=== PATIENT | female | born 1945 | race Caucasian/White ===

== ENCOUNTER → 2019-06-18 | Outpatient (CLI) | payer MEDICARE | END | disposition home or self-care (01) | LOC: RAH 15:11 | PROVIDERS: ATTEND Internal Medicine | DX: Z12.31 Encounter for screening mammogram for malignant neoplasm of breast (principal) | CPT/HCPCS: 77067 ==

== ENCOUNTER → 2020-06-18 | Outpatient (CLI) | payer OTHER, MEDICARE | END | disposition home or self-care (01) | LOC: RAH 15:18 | PROVIDERS: ATTEND Family Medicine | DX: Z12.31 Encounter for screening mammogram for malignant neoplasm of breast (principal) | CPT/HCPCS: 77067 ==

== ENCOUNTER 2020-12-19 10:55 | Emergency (ER) | payer MEDICARE | END 2020-12-19 14:13 | disposition home or self-care (01) | LOC: EDH 10:55 | DX: S92.512A Displaced fracture of proximal phalanx of left lesser toe(s), initial encounter for closed fracture (principal); M19.90 Unspecified osteoarthritis, unspecified site; Z87.891 Personal history of nicotine dependence; Z88.2 Allergy status to sulfonamides; W18.39XA Other fall on same level, initial encounter; Y93.01 Activity, walking, marching and hiking; Y92.098 Other place in other non-institutional residence as the place of occurrence of the external cause; Y99.8 Other external cause status | CPT/HCPCS: 73600; 73630 ==

== ENCOUNTER 2021-03-08 11:08 | Emergency (ER) | payer MEDICARE ==
[~2021-03-08] VITALS: Ht 160 cm; Wt 53.5 kg
[2021-03-08 11:11] VITALS: BP 139/52
[2021-03-08 13:46] VITALS: BP 138/64
[2021-03-08 14:07] LABS: HEMATOCRIT 38.7 % (36-48); MEAN CORPUSCULAR HGB CONC 32.3 g/dL (32.0-36.0); MEAN CORPUSCULAR VOLUME 80.5 fL (79-99); PLATELET COUNT (AUTO) 311 K/uL (130-400); RED BLOOD CELL COUNT(AUTO) 4.81 MIL/uL (4.00-5.50); RED CELL DISTRIBUTION WIDTH 15.2 % (11.0-15.5); WHITE BLOOD COUNT (AUTO) 8.5 K/uL (4.8-10.8)
[2021-03-08 14:24] LABS: POTASSIUM 4.2 mmol/L (3.5-5.1)
[2021-03-08 14:29] LABS: ALBUMIN 3.5 g/dL (3.5-5.0); BILIRUBIN,TOTAL 0.3 mg/dL (0.2-1.0); TOTAL PROTEIN, SERUM 6.8 g/dL (6.0-8.3)
[2021-03-08 14:47] LABS: EOSINOPHILS % (MANUAL) 1 % (1-6); LYMPHOCYTES % (MANUAL) 10 % (22-44); MAN.DIFF COMMENT-IMPRESSION MANUAL DIFFERENTIAL; MONOCYTES % (MANUAL) 4 % (2-9); REACTIVE LYMPHOCYTES 5 % (0-0); SEGMENTED NEUTROPHILS % 80 % (40-70)
[2021-03-08 14:48] LABS: PLATELET MORPHOLOGY COMMENT LARGE PLTS PRESENT
[2021-03-08] MEDS ORDERED: NAPR-1180 PO (15:42)
[2021-03-08] MEDS ORDERED: CEFTRIAXONE 1G VIAL IVP SCH (15:45)
[2021-03-08 15:49] LABS: APPEARANCE,URINE SL CLOUDY (CLEAR); BILIRUBIN,URINE NEGATIVE (NEGATIVE); COLOR,URINE YELLOW (YELLOW); GLUCOSE, URINE (UA) NEGATIVE (NEGATIVE); KETONES,URINE NEGATIVE (NEGATIVE); LEUKOCYTE ESTERASE ,URINE TRACE (NEGATIVE); NITRATE,URINE NEGATIVE (NEGATIVE); OCCULT BLOOD,URINE NEGATIVE (NEGATIVE); PROTEIN,URINE NEGATIVE (NEGATIVE); UROBILINOGEN,URINE 0.2 mg/dL (0.2-1.0)
[2021-03-08 15:59] VITALS: BP 128/71
[2021-03-08] MEDS ORDERED: CEPHALEXIN 500 MG CAPSULE PO ONE (16:00)
[2021-03-08 16:09] LABS: BACTERIA,URINE Few /HPF (None Seen); MUCUS,URINE Rare LPF (None Seen); RBC,URINE 0-1 /HPF (0-1); SQUAMOUS EPITHELIAL CELL,UR Moderate /HPF (0-2)
== END 2021-03-08 16:06 | disposition home or self-care (01) ==
LOC: EDH 11:45
DX: M54.16 Radiculopathy, lumbar region (principal); M06.9 Rheumatoid arthritis, unspecified; R53.1 Weakness; Z88.2 Allergy status to sulfonamides
CPT/HCPCS: 36415; 70450; 72131; 80053; 81001; 85025

== ENCOUNTER 2021-06-15 00:17 | Inpatient (IN) | payer MEDICARE ==
[~2021-06-15] VITALS: Ht 157.5 cm; Wt 56.2 kg
[2021-06-15] VITALS (18 sets, daily range): BP systolic 80–134; BP diastolic 47–101
[~2021-06-15 00:17] MED LIST: NAPR-1180 PO
[2021-06-15] MEDS ORDERED: ZOSYN 3.375GM+NS 50ML 3.38 GM in 0.9%NACL 50ML 50 ML IV SCH (00:30)
[2021-06-15] MEDS ORDERED: LACTATED RINGERS 1000ML 1,000 ML IV ONE ×2 (00:30→18:30)
[2021-06-15] MEDS ORDERED: ACETAMINOPHEN 325 MG SUPPOSITORY RC ONE (01:00)
[2021-06-15 01:15] LABS: ABG BASE EXCESS -11.3 mmol/L (-2.0-3.0); ABG OXYGEN SATURATION 94.6 % (95.0-99.0); ABG PCO2 20 mmHg (32-45)
[2021-06-15 01:16] LABS: BASOPHILS % (AUTO) 0.2 % (0.0-5.0); EOSINOPHILS % (AUTO) 0.4 % (0.0-8.0); HEMATOCRIT 26.8 % (36-48); LYMPHOCYTES % (AUTO) 1.8 % (21.0-51.0); MEAN CORPUSCULAR HEMOGLOBIN 24.4 pg (27.0-33.0); MEAN CORPUSCULAR HGB CONC 33.2 g/dL (32.0-36.0); MEAN CORPUSCULAR VOLUME 73.4 fL (79-99); MONOCYTES % (AUTO) 4.4 % (3.0-13.0); NEUTROPHILS % (AUTO) 92.5 % (40.0-77.0); PLATELET COUNT (AUTO) 453 K/uL (130-400); RED BLOOD CELL COUNT(AUTO) 3.65 MIL/uL (4.00-5.50); RED CELL DISTRIBUTION WIDTH 14.4 % (11.0-15.5); WHITE BLOOD COUNT (AUTO) 24.8 K/uL (4.8-10.8)
[2021-06-15 01:24] LABS: APPEARANCE,URINE Cloudy (CLEAR); BILIRUBIN,URINE Negative (NEGATIVE); COLOR,URINE Dark Yellow (YELLOW); GLUCOSE, URINE (UA) Negative (NEGATIVE); KETONES,URINE 15 mg/dL (NEGATIVE); LEUKOCYTE ESTERASE ,URINE Small (NEGATIVE); NITRATE,URINE Negative (NEGATIVE); OCCULT BLOOD,URINE Negative (NEGATIVE); PROTEIN,URINE Trace mg/dL (NEGATIVE)
[2021-06-15 01:28] LABS: INR 1.38 (0.85-1.15); PROTHROMBIN TIME 14.6 SEC (9.6-11.6)
[2021-06-15 01:29] LABS: PARTIAL THROMBOPLASTIN TIME 23.6 SEC (26.3-35.5)
[2021-06-15] MEDS ORDERED: DEXTROSE 50%-WATER 25 GM/50 ML VIAL IV ONE (01:30)
[2021-06-15] MEDS ORDERED: INSULIN HUMULIN R 100 UNIT/ML 3ML IV ONE ×2 (01:30→04:00)
[2021-06-15] MEDS ORDERED: CALCIUM GLUC 1GM 1 GM in 0.9%NACL 100ML 100 ML IV ONE ×2 (01:30→04:00)
[2021-06-15] MEDS ORDERED: SODIUM BICARB 8.4% 50ML SYRINGE IVP ONE ×2 (01:30→04:00)
[2021-06-15 01:36] LABS: AMORPHOUS SEDIMENT,UR Few /LPF (None Seen); BACTERIA,URINE None Seen /HPF (None Seen); RBC,URINE None Seen /HPF (0-1); SQUAMOUS EPITHELIAL CELL,UR Few /HPF (0-2)
[2021-06-15 01:46] LABS: ALBUMIN 2.3 g/dL (3.5-5.0); BILIRUBIN,TOTAL 0.5 mg/dL (0.2-1.0); CREATININE 1.8 mg/dL (0.5-1.5); MAGNESIUM 2.6 mg/dL (1.80-2.40); TOTAL PROTEIN, SERUM 5.4 g/dL (6.0-8.3)
[2021-06-15 01:49] LABS: B-TYPE NATRIURETIC PEPTIDE 73 pg/mL (0-100)
[2021-06-15 01:54] LABS: POTASSIUM 7.9 mmol/L (3.5-5.1)
[2021-06-15] MEDS ORDERED: SODIUM BICARB 50MEQ 50ML VIAL 50 ML ONE (02:13)
[2021-06-15] MEDS ORDERED: CALCIUM GLUC 1GM/10ML VIAL IV ONE (02:13)
[2021-06-15] MEDS ORDERED: ROCURONIUM BROMIDE 10MG/1ML 5ML VL ONE ×2 (02:15→02:23)
[2021-06-15] MEDS ORDERED: DEXTROSE 50%-WATER 50 ML DISP.SYRIN IV ONE (02:15)
[2021-06-15] MEDS ORDERED: 0.9%NACL 100ML 100 ML ONE (02:16)
[2021-06-15] MEDS ORDERED: ACETAMINOPHEN 650 MG SUPPOSITORY RC ONE (02:19)
[2021-06-15] MEDS ORDERED: PROPOFOL 1000 MG/100 ML 100 ML IV ONE (02:25)
[2021-06-15] MEDS ORDERED: CEFTRIAXONE 1G VIAL IV SCH (02:30)
[2021-06-15] MEDS ORDERED: ACETAMINOPHEN 325 MG TAB PO PRN ×2 (02:30)
[2021-06-15] MEDS ORDERED: ONDANSETRON 4MG INJ IV PRN (02:30)
[2021-06-15] MEDS ORDERED: LACTATED RINGERS 1000ML 1,000 ML IV SCH (02:30)
[2021-06-15] MEDS ORDERED: NITROGLYCERIN 0.4 MG SL TAB SL PRN (02:30)
[2021-06-15] MEDS ORDERED: [UNRECOGNIZED DRUG - OTHER] IV ONE (03:00)
[2021-06-15 03:41] LABS: ABG BASE EXCESS -5.3 mmol/L (-2.0-3.0); ABG HCO3 18.9 mmol/L (21.0-28.0); ABG OXYGEN SATURATION 97.8 % (95.0-99.0); ABG PCO2 32 mmHg (32-45)
[2021-06-15] MEDS ORDERED: ALBUTEROL 0.083% 2.5 MG/3 ML INH IH SCH (06:00)
[2021-06-15] MEDS: ALBUTEROL 0.083% 2.5 MG/3 ML INH IH SCH ×4 (06:43→23:13)
[2021-06-15] MEDS ORDERED: MIDAZOLAM 50MG-0.9% NS 50ML 50 ML BAG IV SCH (07:30)
[2021-06-15] MEDS ORDERED: MIDAZOLAM 100MG-0.9% NS 100ML 100 ML IV SCH (07:30)
[2021-06-15] MEDS ORDERED: KAYEXALATE 15GM/60ML PO SCH (08:00)
[2021-06-15] MEDS ORDERED: FENTANYL CITRATE PF 0.05 MG/ML 1,000 MCG in 0.9%NACL 100ML 100 ML IVPB SCH (08:30)
[2021-06-15] MEDS ORDERED: FENTANYL 2500MCG+NS 250ML 250 ML IV SCH (08:30)
[2021-06-15] MEDS: PANTOPRAZOLE 40MG INJ 80 MG in 0.9%NACL 100ML 100 ML IV SCH (09:00)
[2021-06-15] MEDS ORDERED: 0.9%NACL 50ML 50 ML IV ONE ×2 (09:24→21:48)
[2021-06-15] MEDS: ZOSYN 3.375GM+NS 50ML 50 ML IV SCH ×3 (09:28→17:22)
[2021-06-15 10:43] LABS: BASOPHILS % (AUTO) 0.2 % (0.0-5.0); EOSINOPHILS % (AUTO) 0.4 % (0.0-8.0); HEMATOCRIT 31.1 % (36-48); LYMPHOCYTES % (AUTO) 2.6 % (21.0-51.0); MEAN CORPUSCULAR HEMOGLOBIN 26.4 pg (27.0-33.0); MEAN CORPUSCULAR HGB CONC 35.4 g/dL (32.0-36.0); MEAN CORPUSCULAR VOLUME 74.8 fL (79-99); MONOCYTES % (AUTO) 5.5 % (3.0-13.0); NEUTROPHILS % (AUTO) 90.6 % (40.0-77.0); PLATELET COUNT (AUTO) 302 K/uL (130-400); RED BLOOD CELL COUNT(AUTO) 4.16 MIL/uL (4.00-5.50); WHITE BLOOD COUNT (AUTO) 17.9 K/uL (4.8-10.8)
[2021-06-15 10:57] LABS: INR 1.26 (0.85-1.15); PROTHROMBIN TIME 13.4 SEC (9.6-11.6)
[2021-06-15 10:58] LABS: PARTIAL THROMBOPLASTIN TIME 25.1 SEC (26.3-35.5)
[2021-06-15 11:12] LABS: ALBUMIN 2.2 g/dL (3.5-5.0); BILIRUBIN,TOTAL 0.6 mg/dL (0.2-1.0); CREATININE 1.7 mg/dL (0.5-1.5); POTASSIUM 5.9 mmol/L (3.5-5.1); TOTAL PROTEIN, SERUM 4.8 g/dL (6.0-8.3)
[2021-06-15] MEDS ORDERED: 0.9% NACL 500ML IV.SOLN 500 ML IV ONE (14:00)
[2021-06-15] MEDS: DEXTROSE 5 % AND 0.9 % NACL 1,000 ML IV SCH (14:20)
[2021-06-15] MEDS: PROPOFOL 1000 MG/100 ML 100 ML IV SCH ×2 (14:25→23:25)
[2021-06-15 18:56] LABS: HEMATOCRIT 28.8 % (36-48)
[2021-06-15] MEDS: ARTIFICIAL TEARS 3.5 GM OINTMENT OU SCH (21:08)
[2021-06-16] VITALS (24 sets, daily range): BP systolic 84–138; BP diastolic 48–70
[2021-06-16] MEDS: DEXTROSE 5 % AND 0.9 % NACL 1,000 ML IV SCH ×2 (00:34→05:26)
[2021-06-16] MEDS: ZOSYN 3.375GM+NS 50ML 50 ML IV SCH ×3 (01:56→18:12)
[2021-06-16 03:28] LABS: BASOPHILS % (AUTO) 0.1 % (0.0-5.0); EOSINOPHILS % (AUTO) 0.2 % (0.0-8.0); HEMATOCRIT 25.2 % (36-48); LYMPHOCYTES % (AUTO) 3.8 % (21.0-51.0); MEAN CORPUSCULAR HEMOGLOBIN 26.3 pg (27.0-33.0); MEAN CORPUSCULAR HGB CONC 34.5 g/dL (32.0-36.0); MEAN CORPUSCULAR VOLUME 76.1 fL (79-99); MONOCYTES % (AUTO) 6.6 % (3.0-13.0); NEUTROPHILS % (AUTO) 88.4 % (40.0-77.0); PLATELET COUNT (AUTO) 182 K/uL (130-400); RED BLOOD CELL COUNT(AUTO) 3.31 MIL/uL (4.00-5.50); RED CELL DISTRIBUTION WIDTH 17.1 % (11.0-15.5); WHITE BLOOD COUNT (AUTO) 12.3 K/uL (4.8-10.8)
[2021-06-16 03:38] LABS: % IRON SATURATION 7.2 % (22-44)
[2021-06-16 03:47] LABS: ALBUMIN 1.6 g/dL (3.5-5.0); BILIRUBIN,TOTAL 0.4 mg/dL (0.2-1.0); CREATININE 1.6 mg/dL (0.5-1.5); POTASSIUM 3.7 mmol/L (3.5-5.1)
[2021-06-16 04:30] LABS: ABG BASE EXCESS -4.6 mmol/L (-2.0-3.0); ABG HCO3 19.1 mmol/L (21.0-28.0); ABG OXYGEN SATURATION 98.1 % (95.0-99.0); ABG PCO2 32 mmHg (32-45)
[2021-06-16] MEDS: ARTIFICIAL TEARS 3.5 GM OINTMENT OU SCH ×3 (05:25→21:18)
[2021-06-16] MEDS: ALBUTEROL 0.083% 2.5 MG/3 ML INH IH SCH ×4 (06:39→23:19)
[2021-06-16] MEDS: PANTOPRAZOLE 40MG INJ 80 MG in 0.9%NACL 100ML 100 ML IV SCH (08:30)
[2021-06-16 09:53] LABS: HEMATOCRIT 25.9 % (36-48)
[2021-06-16] MEDS: DEXTROSE 5 %-0.45 % NACL 1,000 ML IV SCH ×2 (10:36→21:18)
[2021-06-16 15:06] LABS: HEMATOCRIT 27.6 % (36-48)
[2021-06-16 20:59] LABS: HEMATOCRIT 26.7 % (36-48)
[2021-06-17] VITALS (20 sets, daily range): BP systolic 104–150; BP diastolic 54–82
[2021-06-17] MEDS ORDERED: 0.9%NACL 50ML 50 ML IV ONE (02:18)
[2021-06-17] MEDS: ZOSYN 3.375GM+NS 50ML 50 ML IV SCH ×3 (02:22→17:48)
[2021-06-17 03:43] LABS: BASOPHILS % (AUTO) 0.1 % (0.0-5.0); EOSINOPHILS % (AUTO) 0.1 % (0.0-8.0); HEMATOCRIT 27.2 % (36-48); LYMPHOCYTES % (AUTO) 3.6 % (21.0-51.0); MEAN CORPUSCULAR HEMOGLOBIN 25.8 pg (27.0-33.0); MEAN CORPUSCULAR HGB CONC 33.1 g/dL (32.0-36.0); MEAN CORPUSCULAR VOLUME 77.9 fL (79-99); MONOCYTES % (AUTO) 6.4 % (3.0-13.0); NEUTROPHILS % (AUTO) 88.9 % (40.0-77.0); PLATELET COUNT (AUTO) 176 K/uL (130-400); RED BLOOD CELL COUNT(AUTO) 3.49 MIL/uL (4.00-5.50); RED CELL DISTRIBUTION WIDTH 17.9 % (11.0-15.5); WHITE BLOOD COUNT (AUTO) 13.5 K/uL (4.8-10.8)
[2021-06-17 04:13] LABS: ALBUMIN 1.5 g/dL (3.5-5.0); BILIRUBIN,TOTAL 0.4 mg/dL (0.2-1.0); CREATININE 1.3 mg/dL (0.5-1.5); POTASSIUM 3.1 mmol/L (3.5-5.1); TOTAL PROTEIN, SERUM 4.6 g/dL (6.0-8.3)
[2021-06-17 05:18] LABS: CRP QUANTITATIVE 238.5 mg/L (0.00-9.0)
[2021-06-17] MEDS: ARTIFICIAL TEARS 3.5 GM OINTMENT OU SCH ×3 (06:34→23:04)
[2021-06-17] MEDS: ALBUTEROL 0.083% 2.5 MG/3 ML INH IH SCH ×4 (07:15→23:22)
[2021-06-17] MEDS: DEXTROSE 5 %-0.45 % NACL 1,000 ML IV SCH ×2 (08:34→15:30)
[2021-06-17] MEDS: PANTOPRAZOLE 40MG INJ 80 MG in 0.9%NACL 100ML 100 ML IV SCH (08:35)
[2021-06-17 12:12] LABS: ABG BASE EXCESS -3.4 mmol/L (-2.0-3.0); ABG HCO3 19.8 mmol/L (21.0-28.0); ABG OXYGEN SATURATION 98.9 % (95.0-99.0); ABG PCO2 29 mmHg (32-45)
[2021-06-17 15:06] LABS: HEMATOCRIT 27.9 % (36-48)
[2021-06-17] MEDS ORDERED: POTASSIUM CHLORIDE 10% ELIXIR 20 MEQ/15 ML UDCUP ONE (15:15)
[2021-06-17] MEDS ORDERED: LIDOCAINE HCL-MPF 1% 2ML VIAL IV PRN (15:30)
[2021-06-17] MEDS ORDERED: POTASSIUM CHLORIDE 20MEQ/100ML 100 ML IV PRN (15:30)
[2021-06-17] MEDS: POTASSIUM CHLORIDE 10% ELIXIR 20 MEQ/15 ML UDCUP PO PRN (15:37)
[2021-06-17] MEDS ORDERED: METOPROLOL TARTRATE 25 MG TAB ONE (17:38)
[2021-06-17] MEDS: METOPROLOL TARTRATE 25 MG TAB PO SCH ×2 (17:48→21:00)
[2021-06-17] MEDS: PANTOPRAZOLE 40 MG/VIAL IVP SCH (21:00)
[2021-06-18] VITALS (11 sets, daily range): BP systolic 104–135; BP diastolic 57–69
[2021-06-18] MEDS: DEXTROSE 5 %-0.45 % NACL 1,000 ML IV SCH (01:15)
[2021-06-18] MEDS: ZOSYN 3.375GM+NS 50ML 50 ML IV SCH ×3 (02:46→17:28)
[2021-06-18 04:18] LABS: BASOPHILS % (AUTO) 0.1 % (0.0-5.0); EOSINOPHILS % (AUTO) 0.1 % (0.0-8.0); LYMPHOCYTES % (AUTO) 3.3 % (21.0-51.0); MEAN CORPUSCULAR VOLUME 78.9 fL (79-99); NEUTROPHILS % (AUTO) 88.7 % (40.0-77.0); NUCLEATED RED BLOOD CELLS 0.1 % (0.0-0.19); PLATELET COUNT (AUTO) 173 K/uL (130-400); RED BLOOD CELL COUNT(AUTO) 3.42 MIL/uL (4.00-5.50); RED CELL DISTRIBUTION WIDTH 18.7 % (11.0-15.5); WHITE BLOOD COUNT (AUTO) 13.8 K/uL (4.8-10.8)
[2021-06-18 04:39] LABS: ALBUMIN 1.5 g/dL (3.5-5.0); BILIRUBIN,TOTAL 0.5 mg/dL (0.2-1.0); CREATININE 1.2 mg/dL (0.5-1.5)
[2021-06-18] MEDS: ARTIFICIAL TEARS 3.5 GM OINTMENT OU SCH (05:21)
[2021-06-18] MEDS: ALBUTEROL 0.083% 2.5 MG/3 ML INH IH SCH ×4 (06:28→23:23)
[2021-06-18] MEDS: METOPROLOL TARTRATE 25 MG TAB PO SCH ×2 (07:44→20:21)
[2021-06-18] MEDS: PANTOPRAZOLE 40 MG/VIAL IVP SCH ×2 (07:44→20:21)
[2021-06-18] MEDS: KCL 20 MEQ ERTAB PO PRN (07:46)
[2021-06-19] MEDS: ZOSYN 3.375GM+NS 50ML 50 ML IV SCH ×3 (02:52→18:30)
[2021-06-19 04:00] VITALS: BP 121/70
[2021-06-19 06:00] LABS: BASOPHILS % (AUTO) 0.1 % (0.0-5.0); EOSINOPHILS % (AUTO) 0.3 % (0.0-8.0); HEMATOCRIT 30.1 % (36-48); LYMPHOCYTES % (AUTO) 3.5 % (21.0-51.0); MEAN CORPUSCULAR HGB CONC 32.6 g/dL (32.0-36.0); MEAN CORPUSCULAR VOLUME 79.8 fL (79-99); MONOCYTES % (AUTO) 7.4 % (3.0-13.0); NEUTROPHILS % (AUTO) 87.7 % (40.0-77.0); PLATELET COUNT (AUTO) 139 K/uL (130-400); RED BLOOD CELL COUNT(AUTO) 3.77 MIL/uL (4.00-5.50); RED CELL DISTRIBUTION WIDTH 19.4 % (11.0-15.5); WHITE BLOOD COUNT (AUTO) 14.7 K/uL (4.8-10.8)
[2021-06-19 06:26] LABS: CREATININE 0.9 mg/dL (0.5-1.5); POTASSIUM 3.3 mmol/L (3.5-5.1)
[2021-06-19] MEDS: ALBUTEROL 0.083% 2.5 MG/3 ML INH IH SCH ×4 (07:28→23:26)
[2021-06-19 08:00] VITALS: BP 129/78
[2021-06-19] MEDS: METOPROLOL TARTRATE 25 MG TAB PO SCH ×2 (09:04→20:35)
[2021-06-19] MEDS: PANTOPRAZOLE 40 MG/VIAL IVP SCH ×2 (09:04→20:35)
[2021-06-19 12:00] VITALS: BP 125/73
[2021-06-19] MEDS ORDERED: DEXTROSE 5%-WATER 1,000 ML IV SCH (12:30)
[2021-06-19 16:00] VITALS: BP 130/50
[2021-06-19 20:00] VITALS: BP 122/66
[2021-06-20] VITALS: BP 128/67
[2021-06-20] MEDS: POTASSIUM CHLORIDE 10% ELIXIR 20 MEQ/15 ML UDCUP PO PRN ×2 (00:48→05:01)
[2021-06-20] MEDS: ZOSYN 3.375GM+NS 50ML 50 ML IV SCH ×3 (02:45→17:36)
[2021-06-20 04:00] VITALS: BP 135/75
[2021-06-20 04:06] LABS: BASOPHILS % (AUTO) 0.3 % (0.0-5.0); EOSINOPHILS % (AUTO) 0.4 % (0.0-8.0); HEMATOCRIT 28.2 % (36-48); LYMPHOCYTES % (AUTO) 3.8 % (21.0-51.0); MEAN CORPUSCULAR HEMOGLOBIN 25.4 pg (27.0-33.0); MEAN CORPUSCULAR HGB CONC 32.6 g/dL (32.0-36.0); MEAN CORPUSCULAR VOLUME 77.9 fL (79-99); MONOCYTES % (AUTO) 9.6 % (3.0-13.0); NEUTROPHILS % (AUTO) 84.8 % (40.0-77.0); PLATELET COUNT (AUTO) 222 K/uL (130-400); RED BLOOD CELL COUNT(AUTO) 3.62 MIL/uL (4.00-5.50); RED CELL DISTRIBUTION WIDTH 18.9 % (11.0-15.5); WHITE BLOOD COUNT (AUTO) 10.2 K/uL (4.8-10.8)
[2021-06-20 04:24] LABS: ALBUMIN 1.5 g/dL (3.5-5.0); BILIRUBIN,TOTAL 0.6 mg/dL (0.2-1.0); CREATININE 0.8 mg/dL (0.5-1.5); MAGNESIUM 1.7 mg/dL (1.80-2.40); TOTAL PROTEIN, SERUM 4.9 g/dL (6.0-8.3)
[2021-06-20 04:34] LABS: POTASSIUM 2.8 mmol/L (3.5-5.1)
[2021-06-20] MEDS ORDERED: MAGNESIUM 2GM PREMIX 50ML 50 ML IV PRN (05:30)
[2021-06-20] MEDS: ALBUTEROL 0.083% 2.5 MG/3 ML INH IH SCH ×4 (06:51→23:39)
[2021-06-20 07:00] VITALS: BP 127/71
[2021-06-20] MEDS: METOPROLOL TARTRATE 25 MG TAB PO SCH ×2 (09:21→20:40)
[2021-06-20] MEDS: PANTOPRAZOLE 40 MG/VIAL IVP SCH ×2 (09:22→20:40)
[2021-06-20 11:00] VITALS: BP 113/64
[2021-06-20 15:00] VITALS: BP 144/78
[2021-06-20 20:00] VITALS: BP 131/70
[2021-06-20] MEDS: KCL 20 MEQ ERTAB PO PRN (20:40)
[2021-06-21] VITALS: BP 115/63
[2021-06-21] MEDS: ZOSYN 3.375GM+NS 50ML 50 ML IV SCH ×2 (02:47→10:22)
[2021-06-21 04:00] VITALS: BP 132/64
[2021-06-21 04:37] LABS: BASOPHILS % (AUTO) 0.3 % (0.0-5.0); EOSINOPHILS % (AUTO) 1.3 % (0.0-8.0); HEMATOCRIT 32.5 % (36-48); LYMPHOCYTES % (AUTO) 5.9 % (21.0-51.0); MEAN CORPUSCULAR HEMOGLOBIN 25.7 pg (27.0-33.0); MEAN CORPUSCULAR HGB CONC 29.8 g/dL (32.0-36.0); MEAN CORPUSCULAR VOLUME 86.2 fL (79-99); NEUTROPHILS % (AUTO) 82.8 % (40.0-77.0); PLATELET COUNT (AUTO) 235 K/uL (130-400); RED BLOOD CELL COUNT(AUTO) 3.77 MIL/uL (4.00-5.50); RED CELL DISTRIBUTION WIDTH 19.8 % (11.0-15.5); WHITE BLOOD COUNT (AUTO) 9.4 K/uL (4.8-10.8)
[2021-06-21 05:04] LABS: CREATININE 0.8 mg/dL (0.5-1.5); POTASSIUM 3.3 mmol/L (3.5-5.1)
[2021-06-21] MEDS: ALBUTEROL 0.083% 2.5 MG/3 ML INH IH SCH ×2 (06:41→11:18)
[2021-06-21 07:00] VITALS: BP 136/71
[2021-06-21] MEDS: PANTOPRAZOLE 40 MG/VIAL IVP SCH (10:21)
[2021-06-21] MEDS: KCL 20 MEQ ERTAB PO PRN (10:21)
[2021-06-21] MEDS: METOPROLOL TARTRATE 25 MG TAB PO SCH (10:22)
[2021-06-21 11:00] VITALS: BP 117/53
== END 2021-06-21 13:45 | DRG 871 ==
LOC: EDH 00:17 → EDHIP 02:04 → 2DH 12:06 → 4DH 06-18 18:15
PROVIDERS: ADMIT Internal Medicine; ATTEND Internal Medicine
PROC: 30233N1 Transfusion of Nonautologous Red Blood Cells into Peripheral Vein, Percutaneous Approach (ICD-10-PCS; principal; 2021-06-15)
PROC: 5A1945Z Respiratory Ventilation, 24-96 Consecutive Hours (ICD-10-PCS; 2021-06-15)
PROC: 0BH17EZ Insertion of Endotracheal Airway into Trachea, Via Natural or Artificial Opening (ICD-10-PCS; 2021-06-15)
DX: A41.9 Sepsis, unspecified organism (principal); R57.1 Hypovolemic shock; R65.21 Severe sepsis with septic shock; J96.01 Acute respiratory failure with hypoxia; K72.00 Acute and subacute hepatic failure without coma; D62 Acute posthemorrhagic anemia; E87.2 Acidosis; N17.9 Acute kidney failure, unspecified; J90 Pleural effusion, not elsewhere classified; N13.30 Unspecified hydronephrosis; C85.90 Non-Hodgkin lymphoma, unspecified, unspecified site; E87.0 Hyperosmolality and hypernatremia; R64 Cachexia; E87.5 Hyperkalemia; N18.9 Chronic kidney disease, unspecified; E27.9 Disorder of adrenal gland, unspecified; E87.8 Other disorders of electrolyte and fluid balance, not elsewhere classified; R53.81 Other malaise; Z20.822 Contact with and (suspected) exposure to COVID-19; R59.0 Localized enlarged lymph nodes; R74.8 Abnormal levels of other serum enzymes; E87.6 Hypokalemia; I12.9 Hypertensive chronic kidney disease with stage 1 through stage 4 chronic kidney disease, or unspecified chronic kidney disease; E88.09 Other disorders of plasma-protein metabolism, not elsewhere classified; Z68.22 Body mass index [BMI] 22.0-22.9, adult; Z88.2 Allergy status to sulfonamides; Z74.01 Bed confinement status; B99.9 Unspecified infectious disease
CPT/HCPCS: 31500; 36415; 36600; 70450; 71045; 74018; 74176; 76700; 80048; 80053; 81001; 82140; 82270; 82435; 82550; 82803; 82947; 82948; 83540; 83550; 83605; 83615; 83735; 83880; 84132; 84295; 84484; 85014; 85018; 85025; 85378; 85610; 85730; 86140; 86850; 86900; 86901; 86923; 87040; 87088; 87635; 92610; 93005; 94002; 94003; 94640; 94664; 97039; 99291; 99292; C9113; C9803; G0378; J0610; J2543; J2704; J3010; J3475; J3480; J3490; J7042; J7070; P9016